=== PATIENT | male | born 1955 | race African-American/Black ===

== ENCOUNTER 2024-04-03 17:50 | Emergency (ER) | payer MEDICARE, MEDICAID ==
[~2024-04-03] VITALS: Ht 175.3 cm; Wt 88.0 kg
[2024-04-03 18:19] VITALS: O2SAT 97
[2024-04-03 20:11] LABS: BASOPHILS % 0.2 % (0.0-2.0); LYMPHOCYTES % 22.9 % (20.0-50.0); MEAN CORPUSCULAR HEMOGLOBIN 29.6 pg (28.0-32.0); MEAN CORPUSCULAR HGB CONC 33.3 g/dL (31.0-37.0); MONOCYTES % 7.5 % (2.0-8.0); NEUTROPHILS % 66.4 % (40.0-76.0); PLATELET 187 x1000/uL (130-400); RED BLOOD CELL COUNT 4.38 mill/uL (4.7-6.1); RED CELL DISTRIBUTION WIDTH 14.5 % (11.6-14.6); WHITE BLOOD COUNT 7.7 x1000/uL (4.5-11.0)
[2024-04-03 20:23] LABS: CHLORIDE 108 mEq/L (98-107); POTASSIUM 3.8 mEq/L (3.5-5.1); SODIUM 143 mEq/L (136-145)
[2024-04-03 20:24] LABS: CALCIUM 9.4 mg/dL (8.7-10.4); CARBON DIOXIDE 29 mEq/L (21-32)
[2024-04-03 20:29] LABS: CREATININE 1.4 mg/dL (0.6-1.3); GLUCOSE 152 mg/dL (70-105); UREA NITROGEN BLOOD 15 mg/dL (9-23)
[2024-04-03] MEDS: ONDANSETRON HCL 4MG/2ML INJ IV ONE (22:08)
[2024-04-03] MEDS: MORPHINE SULFATE 4 MG/ML INJ (FOR IV/IM USE) IV ONE (22:09)
[2024-04-03] MEDS: ONDANSETRON HCL 4MG/2ML INJ IV NR (22:12)
[2024-04-03] MEDS: IOHEXOL-300 100 ML BOTTLE ONE (23:39)
[2024-04-04] MEDS ORDERED: MECL-299 MT (01:37)
[2024-04-04] MEDS: MECLIZINE 25MG TABLET PO ONE (03:01)
[2024-04-04] MEDS: MECLIZINE 12.5MG TABLET PO NR (03:01)
[2024-04-04 04:07] VITALS: BP 135/66; PULSE 84; RESP 18; TEMP 36.44736; O2SAT 97
== END 2024-04-04 04:18 ==
LOC: ER 17:50
DX: R42 Dizziness and giddiness (principal); R10.9 Unspecified abdominal pain; D64.9 Anemia, unspecified; I10 Essential (primary) hypertension; E11.9 Type 2 diabetes mellitus without complications; Z86.73 Personal history of transient ischemic attack (TIA), and cerebral infarction without residual deficits; Z86.79 Personal history of other diseases of the circulatory system
CPT/HCPCS: 99285; 74177; 96374; 96375; 80048; 83690; 85025; 85610; 36415; Q9967; J2405; J2270; J8597; C1893